=== PATIENT | male | born 1970 | race Caucasian/White ===

== ENCOUNTER → 2016-10-21 | Outpatient (CLI) | payer OTHER ==
[~2016-10-21] MED LIST: GLUCOSE TEST ST1 DEV MC; LEVEMIR FLEX100 U/ML SQ; LEVEMIR SQ; NORCO 325 MG-51 TAB PO; NORCO 325 MG-7.1 TAB PO; NOVLOG SQ; NOVOLOG FLEX100 U/ML SC
== END ==
LOC: SUN.DIA 01-20 17:17
DX: E11.9 Type 2 diabetes mellitus without complications (principal); Z79.4 Long term (current) use of insulin; E78.5 Hyperlipidemia, unspecified; E66.9 Obesity, unspecified; Z68.41 Body mass index [BMI] 40.0-44.9, adult; Z71.3 Dietary counseling and surveillance
CPT/HCPCS: G0108

== ENCOUNTER → 2017-09-14 | Outpatient (CLI) | payer OTHER ==
[~2017-09-14] VITALS: Ht 161.3 cm; Wt 113.6 kg
[~2017-09-14] MED LIST changes: +ASPIRIN E.C. 8181 MG PO; +HUMALOG 75/2100 U/ML SQ; +INVOKAMET1 PO; +PRAVACHOL 40MG40 MG PO; +TRESIBA FL100 UNIT/1 SQ; +TRULICITY1.5 MG/0.5 SQ; +ZESTRIL2.5 MG PO
[2017-09-14 08:24] VITALS: BP 128/72; PULSE 80
== END ==
LOC: LIGHT 07:49
DX: E11.9 Type 2 diabetes mellitus without complications (principal); Z79.4 Long term (current) use of insulin; E78.5 Hyperlipidemia, unspecified; I10 Essential (primary) hypertension; E88.81 Metabolic syndrome and other insulin resistance; Z68.41 Body mass index [BMI] 40.0-44.9, adult; Z71.3 Dietary counseling and surveillance
CPT/HCPCS: G0463

== ENCOUNTER 2018-04-17 14:38 | Emergency (ER) | payer OTHER ==
[~2018-04-17] VITALS: Ht 162.6 cm; Wt 110.0 kg
[2018-04-17 14:43] VITALS: BP 137/82; TEMP 98.7
[2018-04-17 17:40] VITALS: PULSE 78
== END 2018-04-17 17:42 | disposition home or self-care (01) ==
LOC: COL.ER 14:38
DX: H61.23 Impacted cerumen, bilateral (principal); E11.9 Type 2 diabetes mellitus without complications; Z79.4 Long term (current) use of insulin

== ENCOUNTER → 2020-02-06 | Outpatient (CLI) | payer OTHER | LOC: ZCOL.LAB 17:08 | DX: B34.9 Viral infection, unspecified (principal); Z20.828 Contact with and (suspected) exposure to other viral communicable diseases ==

== ENCOUNTER 2023-03-28 08:51 | Emergency (ER) | payer OTHER ==
[~2023-03-28] VITALS: Ht 162.6 cm; Wt 109.1 kg
[~2023-03-28 08:51] MED LIST changes: +ZOFRAN ODT4 MG PO
[2023-03-28 08:57] VITALS: TEMP 98.3
[2023-03-28] MEDS ORDERED: AMOXICILLIN 50500 MG PO (10:30)
[2023-03-28] MEDS ORDERED: SEPTRA 400 MG-1 TAB PO (10:31)
[2023-03-28 11:31] LABS: BASO # 0.1 K/mm3 (0.0-0.2); BASO % 0.6 % (0.0-2.0); EOS # 0.3 K/mm3 (0.0-0.7); EOS % 2.6 % (0.0-4.0); GRAN # 8.6 K/mm3 (1.4-6.5); GRAN % 70.6 % (42.2-75.2); HEMATOCRIT 38.4 % (42.0-52.0); HEMOGLOBIN 13.3 g/dl (13.5-18.0); LYMPH # 2.1 K/mm3 (1.2-3.4); LYMPH % 17.4 % (20.0-51.0); MEAN CELL VOLUME 85 fl (80.0-100.0); MEAN CORPUSCULAR HEMOGLOBIN 29 pg (27-31); MEAN CORPUSCULAR HGB CONC 35 g/dl (33.0-37.0); MONO % 8.4 % (1.7-9.3); PLATELET COUNT 425 K/mm3 (130-400); RED BLOOD COUNT 4.52 M/mm3 (4.20-5.60); REDCELL DISTRIBUTION WIDTH-CV 12.6 % (11.5-14.5)
[2023-03-28 11:48] LABS: BILIRUBIN,TOTAL 0.6 mg/dL (0.2-1.2); C-REACTIVE PROTEIN 5.31 mg/dL (0.00-0.50); CALCIUM 9.8 mg/dL (8.4-10.2); CREATININE, serum 1.09 mg/dL (0.72-1.25); TOTAL PROTEIN 7.9 gm/dL (6.2-8.1)
[2023-03-28 12:30] LABS: POTASSIUM 4.7 mmol/L (3.5-4.5)
[2023-03-28 13:05] VITALS: BP 118/76; PULSE 96
== END 2023-03-28 13:05 | disposition home or self-care (01) ==
LOC: COL.ER 08:51
PROVIDERS: Nurse Practitioner
DX: M86.8X7 Other osteomyelitis, ankle and foot (principal); E11.40 Type 2 diabetes mellitus with diabetic neuropathy, unspecified; Z79.4 Long term (current) use of insulin

== ENCOUNTER 2024-01-31 21:32 | Emergency (ER) | payer OTHER ==
[~2024-01-31] VITALS: Ht 162.6 cm; Wt 120.5 kg
[~2024-01-31 21:32] MED LIST changes: +AMOXICILLIN 50500 MG PO; +GLUCOPHAGE500 MG/TAB PO; +JARDIANCE25; +LEVEMIR100 U/ML SQ; +LIPITOR 80MG80 MG PO; +NOVOLOG 100U100 U/M1 SQ; +SEPTRA 400 MG-1 TAB PO
[2024-01-31 21:47] VITALS: TEMP 98.7
[2024-01-31] MEDS ORDERED: DOXYCYCLINE 10100 MG PO (22:05)
[2024-01-31] MEDS ORDERED: cefTRIAXone 2 G,Lidocaine PF 1% 4.2 ML IM ONE (22:15)
[2024-01-31] MEDS ORDERED: Ibuprofen 400 MG TAB PO ONE (22:15)
[2024-01-31] MEDS ORDERED: Doxycycline Monohydrate 100 MG CAP PO ONE (22:15)
[2024-01-31 22:30] VITALS: BP 146/85; PULSE 102
== END 2024-01-31 22:30 | disposition home or self-care (01) ==
LOC: COL.ER 21:32
DX: M79.89 Other specified soft tissue disorders (principal)
CPT/HCPCS: J0696

== ENCOUNTER → 2024-02-01 | Outpatient (CLI) | payer OTHER ==
[~2024-02-01] MED LIST changes: +DOXYCYCLINE 10100 MG PO
== END ==
LOC: COL.RAD 09:19
DX: M79.671 Pain in right foot (principal); M79.89 Other specified soft tissue disorders; Z89.429 Acquired absence of other toe(s), unspecified side